=== PATIENT | female | born 1950 | race Caucasian/White ===

== ENCOUNTER 2016-09-01 05:05 | Inpatient (IN) | payer OTHER ==
[2016-08-09 15:35] VITALS: BMI 35.0
--- NOTE | 2016-08-09 16:09 | PAT Medication Instructions ---
Service Date Aug 09, 2016. Current Home Medication List Acetaminophen Tab (Tylenol), 650 MG PO Q4 PRN for Headache or Pain Iyjqrzs-Rdvvzvijlseba-Sbjbgvju (Excedrin Migraine), 2 TABS PO BID PRN for Headache or Pain Calcium Carbonate-Vitamin D (Calcium + D), 2 TAB PO QPM Citalopram Hydrobromide (Celexa), 10 MG PO QPM Diclofenac Sodium (Topical) (Voltaren 1% Top Gel), 1 APPLN TOP PRN PRN for TENNIS ELBOW Esomeprazole Magnesium (Nexium), 40 MG PO QAM Ibuprofen (Advil), Unknown Dose PO for Pain Methylcellulose (Laxative) (Citrucel Fiber Laxative), 1 TBS PO DAILY PRN for Constipation Multivitamin (Multivitamin), 1 TAB PO QPM Medication Instructions For Your Scheduled Surgery - Hold the following medications 7 days prior to surgery per surgeon instructions: Fwaxpaz-Tkbzzftiwfval-Uzmbwrbd (Excedrin Migraine), 2 TABS PO BID PRN for Headache or Pain (takes rarely for headaches) Ibuprofen (Advil), Unknown Dose PO for Pain - Hold the following medications 24 hours prior to surgery: Diclofenac Sodium (Topical) (Voltaren 1% Top Gel), 1 APPLN TOP PRN PRN for TENNIS ELBOW - Hold the following medications the morning of surgery: Methylcellulose (Laxative) (Citrucel Fiber Laxative), 1 TBS PO DAILY PRN for Constipation - Take the following medications the morning of surgery with a sip of water: Esomeprazole Magnesium (Nexium), 40 MG PO QAM Acetaminophen Tab (Tylenol), 650 MG PO Q4 PRN for Headache or Pain (if needed ) - Take the following medications as scheduled the night before surgery: Multivitamin (Multivitamin), 1 TAB PO QPM Methylcellulose (Laxative) (Citrucel Fiber Laxative), 1 TBS PO DAILY PRN for Constipation Citalopram Hydrobromide (Celexa), 10 MG PO QPM Calcium Carbonate-Vitamin D (Calcium + D), 2 TAB PO QPM Acetaminophen Tab (Tylenol), 650 MG PO Q4 PRN for Headache or Pain If you have any questions please call us at [phone] or [phone] ( Milly) or [phone]
[2016-08-09 16:40] LABS: BASO % 0.5 %; BASO ABS # 0.04 K/uL (0-0.2); COMPLETE YES; EOS % 1.6 %; HEMATOCRIT 39.2 % (37-47); IG% 0.7 %; LYMPH % 25.6 %; LYMPH ABS # 1.93 K/uL (1.2-3.4); MEAN CELL VOLUME 92.9 fL (80-100); MEAN CORPUSCULAR HEMOGLOBIN 30.6 pg (25-34); MEAN CORPUSCULAR HGB CONC 32.9 g/dl (32-36); MEAN PLATELET VOLUME 11.9 fL (7.4-10.4); MONO % 4.5 %; NEUT % 67.1 %; PLATELET COUNT 212 K/uL (130-400); RED BLOOD COUNT 4.22 M/uL (4.2-5.4); WHITE BLOOD COUNT 7.55 K/uL (4.8-10.8)
--- NOTE | 2016-08-09 16:40 | DIAGNOSTIC IMAGING REPORT ---
CHEST PREADMISSION(PA/LAT) CLINICAL HISTORY: Preoperative chest COMPARISON STUDY: No previous studies for comparison. FINDINGS: The heart is at the upper limits of normal in size. There is no failure. There is no focal pulmonary consolidation. There are no pleural effusions.[ IMPRESSION: No active disease in the chest. Electronically signed by: Timmy Forte M.D. 08/09/2016 4:39 PM Dictated Date/Time: 08/09/2016 4:39 PM
[2016-08-09 16:44] LABS: URINE APPEARANCE CLEAR (CLEAR); URINE BILIRUBIN NEG (NEG); URINE COLOR YELLOW; URINE EPITHELIAL CELL AUTO 0-5 /lpf (0-5); URINE NITRITE NEG (NEG); URINE PH 5.5 (4.5-7.5); URINE SPECIFIC GRAVITY 1.005 (1.000-1.030); UROBILINOGEN NEG (NEG)
[2016-08-09 16:48] LABS: INR 0.9 (0.9-1.1); MANUAL MICROSCOPIC REQUIRED? NO; PARTIAL THROMBOPLASTIN RATIO 1.1; REVIEW REQ? NO
[2016-08-09 16:54] LABS: BUN/CREATININE RATIO 13.6 (10-20); CALCIUM 8.9 mg/dl (8.5-10.1); CREATININE 0.75 mg/dl (0.60-1.20); POTASSIUM 4.2 mmol/L (3.5-5.1)
--- NOTE | 2016-08-10 18:32 | HISTORY & PHYSICAL EXAMINATION ---
DATE OF ADMISSION: 09/01/2016 CHIEF COMPLAINT: Bilateral knee pain, right side greater than left. HISTORY OF PRESENT ILLNESS: This 66-year-old female who presents to the clinic for preoperative history and physical. The patient complains of a several year history of bilateral knee pain. States the pain in her right knee is significantly greater than that of her left. The patient states that she has been a patient of Dr. Gramajo for approximately 10 years and has failed all types of conservative treatment to help control the progression of her arthritis. The patient states this time her right knee pain is affecting her daily living and feels that it is necessary for her to proceed with a total knee arthroplasty. At this time, the patient denies chest pain, shortness of breath, fevers, chills, sweats, nausea, vomiting or diarrhea. PAST SURGICAL HISTORY: Colonoscopy, hysterectomy, skin punch biopsy and wisdom tooth extraction. PAST MEDICAL HISTORY: Depression, gastroesophageal reflux, plantar fasciitis, obesity, borderline hyperlipidemia and difficulty waking from anesthesia. ALLERGIES: THE PATIENT HAS MEDICATION ALLERGY TO SULFA DRUGS. CURRENT MEDICATIONS taking Advil 200 mg oral tablets 2 tabs every 6 hours as needed for pain, calcium 600 plus D2 tabs daily, Celexa 10 mg oral tablet 1 tab daily, multivitamin unknown dosage 1 tab daily, Nexium 40 mg oral delayed release capsule 1 cap daily, Voltaren 1% topical gel 1 application topically 4 times daily as needed. SOCIAL HISTORY: The patient denies a history of smoking or illicit drug use. States she consumes approximately 1 alcoholic beverage per week. PHYSICAL EXAMINATION: SKIN: The patient's skin is normal in appearance. No skin lesions or discharge. EYES: Pupils are equal and reactive to light and accommodating. Extraocular movements are intact. EARS: Canals are clear of cerumen. Tympanic membranes are intact bilaterally with no bulging or effusion. NOSE: Turbinates pink and boggy in appearance. No appreciable rhinorrhea. THROAT: Posterior oropharynx clear without evidence of edema, erythema or exudate. CARDIOVASCULAR: The patient has a regular rate and rhythm with no murmurs or gallops appreciated. LUNGS: Auscultation of the lung clayton reveals clear breath sounds throughout with no wheezing, rales or rhonchi. ABDOMEN: Obese, nondistended, nontender with normoactive bowel sounds throughout. EXTREMITIES: Right knee, the patient is able to extend to 40 degrees and flex 112 degrees. She has mild crepitation to active and passive range of motion and obvious varus deformity of the right knee joint. She also experiences medial and lateral joint line tenderness on palpation at the knee placed in a flexed position. The patient's right patella was not mobile due to arthritic changes within the patellofemoral joint; however, she has no varus or valgus laxity. Negative drawer sign. Negative Kin's test. Her right calf is soft and supple, nontender to palpation. She is able to dorsi and plantarflex actively and passively against resistance without referred knee pain. She is neurovascularly intact in the right lower extremity. Peripheral pulses are palpable and capillary refill is brisk. She also has no notable edema, erythema, ecchymosis or palpable bony deformity of the right knee. The left knee, the patient also has a varus deformity, crepitation, medial and lateral joint line tenderness and inability to reach terminal flexion and extension. All other extremities normal appearance, appropriate range of motion and strength. NEUROLOGICAL: Cranial nerves II through XII are intact. No motor or sensory deficit. PSYCHOLOGICAL AND GENERAL: The patient is alert and oriented x3, proper grooming and hygiene. DIAGNOSIS: Right knee degenerative joint disease. PROCEDURE: Right total knee arthroplasty. Radiographic imaging standing series reveals end-stage degenerative joint disease of the right knee with marked varus deformity and significant flexion deformity as well as joint space narrowing. PLAN: The patient is scheduled to undergo the procedure with Dr. Wei Gramajo at the [facility] on 09/01/2016. Risks and complications of the surgery such as infection, bleeding, pain, scarring, nerve and blood vessel damage, weakness, wound problems, stiffness, incomplete relief of symptoms, heart attack, stroke, , hardware failure, loosening, wear, fracture, blood clots, embolism were explained to the patient, she understands and agrees. Written consent to perform the procedure was obtained. We will also obtain preoperative medical clearance from the patient's primary care provider, Dr. Heredia along with a CBC with differential, partial renal profile, PT/INR, PTT, blood type and screen, urinalysis, EKG and chest x-ray. The patient is scheduled for a preoperative anesthesia clearance at the hospital, staff will obtain the necessary testing at that time. The patient states she most likely will borrow a walker from her friend who recently had a hip replacement. However, if it is not available, she will contact the clinic and we will place an order for one. The patient was advised that she will be provided with prescription for pain medicine for postoperative pain control upon discharge from the hospital along with a prescription for Coumadin to take for 6 weeks for DVT prophylaxis. The patient will also use MICHELE stockings to prevent blood clots or embolism. She will be given prescriptions for physical therapy 2-3 times weekly for 6-8 weeks as well as biweekly PT/INR checks for the 6 weeks that she is taking the Coumadin. The patient was given paperwork for handicap placard that she may obtain prior to the procedure. The patient states she will most likely receive home therapy for 2 weeks postoperatively and then will continue her physical therapy in our PT department. The patient was advised of postoperative followup scheduled with Kaveh Robertson PA-C on 09/16/2016 at 1:00 p.m. The patient verbalized understanding of all the information provided at today's visit, thanks for the care she has received in our clinic and states that if she has additional questions or concerns that should arise prior to the procedure date she will contact the clinic accordingly. I attest to the content of the Intraoperative Record and any orders documented therein. Any exceptions are noted below. BECK
[~2016-09-01] VITALS: Ht 154.9 cm; Wt 85.0 kg
[2016-09-01] VITALS (9 sets, daily range): BP systolic 89–124; BP diastolic 53–85; PULSE 61–79; TEMP 36.5–36.9; O2SAT 94–98; Ht 154.9 cm; Wt 85.0 kg
[~2016-09-01 05:05] MED LIST: ACET325T96 PO; ASPI-390 PO; CALC600T9 PO; CITA10TA8 PO; DICL1GEL12 TOP; IBUP-1277 PO; METHPOW7 PO; MULT-506 PO; NXM/40 PO
[2016-09-01] MEDS ORDERED: LACTATED RINGER'S 1000ML 500 ML IV ONE (06:00)
[2016-09-01] MEDS ORDERED: LACTATED RINGER'S 1000ML 1,000 ML IV SCH (06:00)
[2016-09-01] MEDS ORDERED: CEFAZOLIN 2000 MG/60 ML D5W 60 ML IV SCH (06:00)
[2016-09-01] MEDS ORDERED: ROPIVACAINE 5MG/ML 30 ML 150 MG, BUPIVACAINE/EPINEPHR 0.5% MPF 30 ML, KETOROLAC TROMETH... INFIL SCH ×7 (06:00)
[2016-09-01] MEDS ORDERED: LACTATED RINGER'S 1000ML IV SCH (06:00)
--- NOTE | 2016-09-01 06:19 | History & Physical Bridge Note ---
H&P Re-Evaluation Bridge Note: I have examined the patient, reviewed the History & Physical and in the interval since the performance of the History & Physical I have noted the following changes of clinical significance: No changes noted
[2016-09-01] MEDS: TRANEXAMIC ACID INJ 1,000 MG in SODIUM CHLORIDE 0.9% 100ML 100 ML IV SCH ×2 (06:22→06:30)
[2016-09-01] MEDS ORDERED: BUPIVACAINE 0.5 % 5 MG/1 ML PF 10ML VIAL ONE (06:26)
[2016-09-01] MEDS ORDERED: BUPIVACAINE 0.25% 30 ML VIAL ONE (06:27)
[2016-09-01] MEDS ORDERED: MIDAZOLAM HCL 1 MG/ML 2ML VIAL ONE (06:30)
[2016-09-01] MEDS ORDERED: ORTHO JOINT ANESTHETIC ONE (06:33)
[2016-09-01] MEDS ORDERED: POVIDONE-IODINE OP SOLN 30 ML BTL ONE (06:34)
[2016-09-01] MEDS ORDERED: PROPOFOL IV EMULSION 10 MG/ML 20 ML VIAL IV ONE (07:10)
[2016-09-01] MEDS ORDERED: PHENYLEPHRINE 100MCG/ML 5ML SYR ONE (07:10)
[2016-09-01] MEDS ORDERED: ATROPINE SULFATE 0.1 MG/ML 5ML SYR IV PRN (07:30)
[2016-09-01] MEDS ORDERED: EpHEDrine SULFATE INJ 50 MG/ML AMP IV PRN (07:30)
[2016-09-01] MEDS ORDERED: ONDANSETRON INJ 2 MG/ML 2 ML VIAL IV PRN ×2 (07:30→08:30)
[2016-09-01] MEDS ORDERED: FENTANYL CITRATE INJ 50 MCG/1 ML 2 ML VIAL IV PRN (07:30)
--- NOTE | 2016-09-01 08:15 | [facility] Post Operative Brief Note ---
Immediate Operative Summary Operative Date Sep 01, 2016. Pre-Operative Diagnosis Right Knee Degenerative Joint Disease Post-Operative Diagnosis Right Knee Degenerative Joint Disease Procedure(s) Performed Right Total Knee Arthroplasty Surgeon Dr. Gramajo Exterior Work Helper Surgeon(s) ALFRED Lara Estimated Blood Loss 25 ml Findings sever medial disease Fluids (cc crystalloids) 1200cc Specimens A. Right Knee Bone and Tissue Drains none Anesthesia spinal Complication(s) None Disposition Recovery Room / PACU
[2016-09-01] MEDS ORDERED: ALUMINUM/MAGNESIUM/SIMETH (MAALOX MAX) 30 ML UDC PO PRN (08:30)
[2016-09-01] MEDS ORDERED: BISACODYL 10 MG SUPP PR PRN (08:30)
[2016-09-01] MEDS ORDERED: ACETAMINOPHEN 325 MG TAB PO PRN (08:30)
[2016-09-01] MEDS ORDERED: MoRPHine SULFATE 2 MG/ML CARP IV PRN (08:30)
[2016-09-01] MEDS ORDERED: METOCLOPRAMIDE HCL INJ 5 MG/ML 2 ML VIAL IV PRN (08:30)
[2016-09-01] MEDS ORDERED: MAGNESIUM HYDROXIDE SUSP 30 ML UDC PO PRN (08:30)
[2016-09-01] MEDS ORDERED: DiphenhydrAMINE HCL 50 MG/ML VIAL IV PRN (08:30)
[2016-09-01] MEDS ORDERED: ACETAMINOPHEN IV 100 ML IV PRN (08:30)
--- NOTE | 2016-09-01 08:35 | OPERATIVE REPORT ---
DATE OF OPERATION: 09/01/2016 PREOPERATIVE DIAGNOSIS: Osteoarthritis with varus deformity, right knee. POSTOPERATIVE DIAGNOSIS: Same. OPERATION PERFORMED: Cemented right total knee replacement. SURGEON: Dr. Gramajo. RN PACU: Kaveh Robertson PA-C. No resident or fellow available. SUMMARY OF IMPLANTS: Size 3 right posterior cruciate substituting femur, size 2.5 tibial tray, size 3 12.5 posterior cruciate stabilized poly insert. Oval domed 3 pegged patella size 35. Two bags of Palacos G cement. ESTIMATED BLOOD LOSS: 25 mL. CRYSTALLOID: 1200 mL. PERIOPERATIVE SITUATION: Medically cleared female with intractable knee pain has been followed for over a decade with progressive knee pain, has failed conservative management. At this point in time wants to proceed with surgical treatment. X-rays reveal end-stage medial compartment disease with complete collapse standing x-ray. PROCEDURE: The patient appropriately identified, site verified, consent verified, 2 grams of Ancef confirmed as being given. TXA confirmed as being given. The right lower extremity was prepped and draped in usual routine fashion. Tourniquet was inflated to 300 mmHg after exsanguination of limb with a rubber Esmarch bandage for a total of approximately 50 minutes. Midline exposure utilized. Parapatellar arthrotomy performed. Appropriate soft tissue release performed. Synovectomy completed. Osteophytes resected. Distal femur entered. Resected 12 mm. Femur was sized after the tibia cut. The proximal tibia was then delivered and it was resected 4 mm. Extension gap was then checked and it was excellent. The femur was then sized between a 3-1/2 and 2-1/2, it was measured 3 and cut 3 with no significant notching. The flexion gap was then checked. It was excellent. The box cut was then made. A size 3 trial fit well. The tibia was then subluxated anteriorly and appropriate broaching and reaming carried up for 2-1/2. The size 3 spacer was then placed and the knee was checked and it was in excellent alignment and extension and had full extension and flexion easily to 125 degrees. It was stable with mid range and deep flexion. This was then irrigated. The patella was then sized to a 35. Resection made leaving about 14.5 mm patella and the drill holes made and the trial tracked well. The wound was then irrigated. It was then sterilely injected with the Orthomix and then irrigated one final time with Betadine and Pulsavac and then the permanents cemented into position. After 12 minutes, the tourniquet deflated. After 14 minutes the knee flexed, trial spacer removed, the wound irrigated one final time. Minor cement removal occurred. Permanent spacer seated. The knee reduced and then closed with #1 Ethibond, #1 Vicryl, 2-0 Vicryl and stainless steel clips. Appropriate soft tissue dressing applied. The patient was then transferred to recovery room in satisfactory condition having tolerated the procedure well. Deep venous thrombosis prophylaxis per protocol. I attest to the content of the Intraoperative Record and any orders documented therein. Any exceptio ns are noted below.
--- NOTE | 2016-09-01 08:54 | DIAGNOSTIC IMAGING REPORT ---
RIGHT KNEE 1 OR 2 VIEWS ROUTINE CLINICAL HISTORY: AP/LATERAL IN PACU RIGHT KNEE Right knee replacement COMPARISON: None. DISCUSSION: Total right knee prosthetic. Good contact between prosthetic and underlying bone. Expected soft tissue postoperative change IMPRESSION: Anatomic alignment status post total right knee replacement Electronically signed by: Evans Browne M.D. 09/01/2016 8:53 AM Dictated Date/Time: 09/01/2016 8:53 AM
--- NOTE | 2016-09-01 09:14 | Anesthesiology Progress Note ---
Anesthesia Post Op Note Date & Time Sep 01, 2016 at 09:13 Vital Signs Pain Intensity: 0 Vital Signs Past 12 Hours Date Time Temp Pulse Resp B/P Pulse Ox O2 Delivery O2 Flow Rate FiO2 09/01/16 09:05 63 16 95/49 95 Nasal Cannula 2 09/01/16 08:55 63 18 92/47 95 Nasal Cannula 2 09/01/16 08:45 68 14 106/49 99 Nasal Cannula 2 09/01/16 08:35 64 18 88/44 98 Nasal Cannula 2 09/01/16 08:30 88/43 09/01/16 08:25 36.4 70 20 75/38 99 Mask 10 09/01/16 05:43 36.9 70 18 124/85 96 Room Air Notes Mental Status: alert / awake / arousable, participated in evaluation Pt Amnestic to Procedure: Yes Nausea / Vomiting: adequately controlled Pain: adequately controlled Airway Patency, RR, SpO2: stable & adequate BP & HR: stable & adequate Hydration State: stable & adequate Neuraxial Anesthesia: was administered, sensory block is resolving Anesthetic Complications: no major complications apparent
[2016-09-01] MEDS ORDERED: MoRPHine SULFATE 4 MG/ML 1 ML CARP\\VIAL IV PRN (09:45)
[2016-09-01] MEDS: D5W AND 1/2NSS + 20MEQ KCL 1,000 ML IV SCH ×2 (09:57→19:42)
[2016-09-01] MEDS: DOCUSATE SODIUM 100 MG CAP PO SCH ×2 (10:30→21:20)
[2016-09-01] MEDS: PANTOprazole SOD 40 MG TAB PO SCH (10:30)
[2016-09-01] MEDS: MULTIVITAMIN TAB PO SCH (10:31)
--- NOTE | 2016-09-01 11:04 | OPERATIVE REPORT ---
DATE OF OPERATION: 09/01/2016 PREOPERATIVE DIAGNOSIS: Right knee end-stage degenerative joint disease. POSTOPERATIVE DIAGNOSIS: Right knee same. PROCEDURE: Right knee total knee arthroplasty using DePuy implants. SURGEON: Dr. Gramajo. PARADICHLOROBENZENE MACHINE OPERATOR: Kaveh Robertson PA-C. HISTORY OF PRESENT ILLNESS: This 66-year-old white female presented to the office with complaints of right knee pain. She had tried conservative care measures without success. She elected to proceed with surgical intervention in hopes of alleviating her pain. Preoperative x-rays were obtained. OPERATION: The patient was administered spinal anesthetic and regional block and then taken to the operating room where she was given sedation. She was prepped and draped in the usual sterile fashion. Please see Dr. Gramajo's operative report for specifics of the procedure. I was present for the entire case from initial patient positioning through final wound closure. Assistance was provided in tissue retraction, hemostasis, trial implant placement, final implant placement, and final wound closure. The patient was taken to the recovery room in satisfactory condition. I attest to the content of the Intraoperative Record and any orders documented therein. Any exceptio ns are noted below.
[2016-09-01] MEDS ORDERED: WARF2TAB PO (11:17)
[2016-09-01] MEDS ORDERED: OXYC-57 PO (11:17)
[2016-09-01] MEDS: FERROUS GLUCONATE 324 MG TAB PO SCH ×2 (12:25→18:33)
[2016-09-01] MEDS: KETOROLAC TROMETHAMINE 15 MG/ML VIAL IV. SCH ×3 (12:25→23:46)
--- NOTE | 2016-09-01 13:58 | PROGRESS NOTE ---
DATE: 09/01/2016 DATE: 09/01/2016. SUBJECTIVE: Postop check status post right total knee replacement. At this point in time the patient is doing well, has no major issues. Block is wearing off. Vital signs are stable, she is afebrile. X-rays postop look excellent. ASSESSMENT: Continued care pathway status post total knee replacement. Mobilize KRISTEN.
[2016-09-01] MEDS ORDERED: TRANEXAMIC ACID INJ 1,000 MG in SODIUM CHLORIDE 0.9% 100ML 100 ML IV SCH (14:30)
[2016-09-01] MEDS: CEFAZOLIN IV 2,000 MG in DEXTROSE 5% 50ML 50 ML IV SCH ×2 (15:02→22:47)
[2016-09-01] MEDS ORDERED: WARFARIN SOD 5 MG TAB PO SCH (16:00)
[2016-09-01] MEDS: OXYCODONE HCL IR 5 MG TAB (IMMEDIATE RELEASE) PO PRN ×2 (19:42→23:46)
[2016-09-01] MEDS ORDERED: NURSING VERBAL MED ORDER ONE (20:45)
[2016-09-01] MEDS ORDERED: CITALOPRAM 20 MG TAB PO SCH (21:00)
[2016-09-02 03:59] VITALS: BP 98/65; PULSE 81; TEMP 36.5; O2SAT 95
[2016-09-02] MEDS: OXYCODONE HCL IR 5 MG TAB (IMMEDIATE RELEASE) PO PRN ×3 (04:11→13:39)
[2016-09-02 05:31] LABS: MEAN CELL VOLUME 92.2 fL (80-100); MEAN CORPUSCULAR HEMOGLOBIN 30.2 pg (25-34); MEAN CORPUSCULAR HGB CONC 32.7 g/dl (32-36); MEAN PLATELET VOLUME 11.1 fL (7.4-10.4); PLATELET COUNT 198 K/uL (130-400); RED BLOOD COUNT 3.58 M/uL (4.2-5.4); WHITE BLOOD COUNT 10.85 K/uL (4.8-10.8)
[2016-09-02 05:44] LABS: INR 1.1 (0.9-1.1); PROTHROMBIN TIME (PATIENT) 11.4 SECONDS (9.0-12.0)
[2016-09-02] MEDS: KETOROLAC TROMETHAMINE 15 MG/ML VIAL IV. SCH (05:56)
[2016-09-02 06:21] LABS: BUN/CREATININE RATIO 15.5 (10-20); CALCIUM 8.3 mg/dl (8.5-10.1); CREATININE 0.76 mg/dl (0.60-1.20); POTASSIUM 4.1 mmol/L (3.5-5.1)
[2016-09-02 07:00] VITALS: BP 104/66; PULSE 70; TEMP 36.5; O2SAT 97
--- NOTE | 2016-09-02 07:06 | PROGRESS NOTE ---
DATE: 09/02/2016 Postop day #1 status post right total knee replacement. At this point in time, the patient is doing well. She has no major issues. Her pain is well-managed. She denies any chest pain, shortness of breath, nausea, vomiting, headache, fever or chills. Vital signs are stable. She is afebrile. Neurovascular check; femoral sciatic nerve is good. She can do a straight leg raise. Wound dressing is clean, dry and intact. Abdomen is soft and nontender. Calves are nontender. Laboratory work this morning reveals hematocrit is 33. INR is 1.1. Chemistry is good. ASSESSMENT: Doing well. Plan is for PT/OT today and discharge later today. Coumadin per nomogram. Discharge on 4 mg of Coumadin daily. Check INR on Tuesday. She is doing at home PT for 2 weeks. She can have blood work done there as well.
[2016-09-02] MEDS: DEXAMETHASONE INJ 10 MG in SYRINGE 0 ML IV ONE ×2 (07:52→07:54)
--- NOTE | 2016-09-02 07:52 | DISCHARGE SUMMARY ---
CHIEF COMPLAINT: Right knee pain. HISTORY OF PRESENT ILLNESS: The patient underwent elective right total knee replacement for end-stage osteoarthritis of her right knee. Her hospital course has been uneventful. PAST SURGICAL HISTORY: Remarkable for colonoscopy, hysterectomy, skin punch biopsies, wisdom tooth extraction. PAST MEDICAL HISTORY: Remarkable for depression, reflux disease, plantar fasciitis, obesity, borderline hyperlipidemia. ALLERGIES: SULFA DRUGS. PREADMISSION MEDICATIONS: Include Advil, calcium, Celexa, multivitamins, Nexium, Voltaren topically. She will discontinue all anti-inflammatories, continue other meds, add p.r.n. pain medication, see prescription. Coumadin to keep INR 1.8-2.2. SOCIAL HISTORY: Reveals that she denies smoking or drug use. Social drinking only. PHYSICAL EXAMINATION: Reveals neurovascular check to be normal. Calves Abdomen soft. Chest clear. Blood work is excellent. ASSESSMENT: Doing well status post right total knee replacement. Will discharge to home after PT, OT today, latest tomorrow. Discharge on 4 mg of Coumadin daily. Check INR on Tuesday.
[2016-09-02] MEDS: DOCUSATE SODIUM 100 MG CAP PO SCH (08:38)
[2016-09-02] MEDS: FERROUS GLUCONATE 324 MG TAB PO SCH ×2 (08:38→12:26)
[2016-09-02] MEDS: MULTIVITAMIN TAB PO SCH (08:39)
[2016-09-02] MEDS: PANTOprazole SOD 40 MG TAB PO SCH (08:39)
[2016-09-02] MEDS ORDERED: DEXAMETHASONE 4 MG TAB PO ONE (08:45)
--- NOTE | 2016-09-02 09:05 | Discharge Instructions ---
Discharge Instructions Date of Service Sep 01, 2016. Admission Reason for Admission: Right Knee Degenerative Joint Disease Discharge Discharge Diagnosis / Problem: Right knee s/p total knee replacement Discharge Goals Goal(s): Decrease discomfort, Improve function, Increase independence Activity Recommendations Activity Limitations: as noted below Lifting Limitations: gradually increase as tolerated Exercise/Sports Limitations: until after follow-up appointment Shower/Bathe: keep incision dry Driving or Machine Use: No driving until cleared by Dr. Gramajo Weightbearing Status: Right weightbearing (as tolerated) . Instructions / Follow-Up Instructions / Follow-Up New Medicine: * You will likely be taking one or more of these medications: 1. Percocet - Take, as directed, when you need it, every four to six hours to control your pain. 2. Iron Sulfate - Take 1 time each day for the month after surgery to help you replace the blood lost during surgery. 3. Coumadin - Thins your blood to lessen the chance of forming a blood clot. The dose of this is different for each person and is based on your blood tests that are done twice a week. * The most common side effects of pain medicine and iron are nausea and constipation. If nausea or constipation is too much of a problem or if you have any questions about your new medicines or doses, call [facility] at . We will try to help you manage these issues. VERY IMPORTANT TO READ AND REVIEW" Blood Clots and Blood Thinning Medicine: * You are given Coumadin during the immediate post-operative period to lessen the risk of blood clots forming in your legs and/or lungs. Coumadin is usually given for six weeks after surgery. * The prescription is for 2 mg tablets. At discharge, you should understand your dose and take it all at the same time every day, preferably after dinner. * You need to get your blood checked 1 - 2 times per week for six weeks or as directed. * If your dose needs to change, we will call you. Do not take your medication on the day of the blood test until we call you. Pain: * The immediate post-operative period after knee replacement surgery is often quite painful. * You are given a prescription for pain medicine. You should take it, as directed, when you need it, especially before physical therapy and before going to bed. Pain that interferes with sleep is very common and can last several months. * You will likely need pain medicine for the first four to six weeks. It will not stop all of the pain. The pain will lessen and as you feel better, you may change to milder pain medicine such as Tylenol. * The most common side effects of pain medicine are nausea and constipation, so don't take more than you need. Physical Therapy: * You will have physical therapy two or three times each week for four to six weeks after your surgery in order to regain your knee range of motion and to retrain your knee to work properly. * It is just as important to make sure you are getting your knee perfectly straight as it is to regain your knee bend. * Taking a pain pill an hour before therapy can help you have a more productive and comfortable therapy session if needed. Home Exercise: * You were shown a series of exercises (heel props, heel slides, etc.) in the hospital. Do these exercises three to four times each day including the exercises you were shown in physical therapy. Walking: * Get up and walk several times each day. For the first four weeks, try not to stand or walk for more than one hour at a time. If you do stand or walk for more than one hour, you will not hurt anything, but your knee and leg will likely swell. * As you feel comfortable, you may change from the walker or crutches to a cane and then to independent walking. SELF CARE INSTRUCTIONS AFTER TOTAL KNEE REPLACEMENT A. You may need to continue a physical therapy program after discharge from the hospital. There are several options available to you. Your doctor will assist you in selecting the best one for you. 1. An out-patient facility 2 to 3 times a week for therapy or home therapy. 2. Continue working on all exercises taught to you in the hospital. Your goals should be to increase bending of your knee to 90 degrees and beyond and to fully straighten your knee. B. You may progress at your own pace from walking with a walker or crutches to a cane; then to no assistive devices. C. Make walking a part of your daily routine. Be up as much as comfortable with rest periods throughout the day. Rest with leg elevation is very important. Use the ice wrap frequently for the first 3-4 weeks. D. There are no restrictions on activities. You may ride in a car, shop, participate in solar project manager and all social activities. E. Wear the long elastic stockings (MICHELE hose) 20 hours a day for six weeks after surgery. They can be removed several times a day for laundering and for a shower. F. Do not place a pillow behind your knee when resting. A pillow at your ankle is okay. VERY IMPORTANT TO READ AND REVIEW A. Take Coumadin, Aspirin or Lovenox (blood thinning medications) as directed by your doctor. If on Coumadin, have a pro-time (blood test) drawn according to your doctor's instructions. This will tell the doctor how well the Coumadin is thinning your blood. 1. YOU WILL BE GIVEN AN ORDER AT DISCHARGE FOR PT/INR (BLOOD WORK). PLEASE HAVE THIS DONE INSTRUCTED. PLEASE CALL OUR OFFICE AFTER YOUR BLOODWORK IS COMPLETE SO WE CAN TRACK YOUR RESULTS. IF YOU ARE GOING TO OUTPATIENT PHYSICAL THERAPY, YOU WILL NEED TO GO TO OUTPATIENT TESTING TO HAVE IT DRAWN. B. There are a few signs you need to watch for after you are home. Call [facility] if you notice any of the followin. Increased severe knee pain. Some pain is expected especially when you exercise. 2. Increased swelling in your leg or knee; pain or swelling of the calf muscle in either lower leg. 3. Any fluid drainage from the incision. 4. Shortness of breath or chest pain. C. Please call [facility] at if you have any concerns or questions about your operation or recovery. The doctor or his nurse will return your call promptly. D. You must take antibiotics before dental work, bladder, bowel or other surgery. Call the office to obtain a prescription at least 2 days prior to your appointment. * CALL IF INCREASED PAIN, REDNESS, DRAINAGE OR FEVER GREATER THAT 101. * Sutures should be removed 12-14 days after surgery unless you are on chronic steriods, then it will be 14-18 days after surgery. Call your doctor if: * Temperature above 101 degrees F. * Pain not relieved by pain medicine ordered. * Increased drainage or redness from incision. * Notify your doctor with any questions or concerns. Current Hospital Diet Patient's current hospital diet: AHA Diet (Heart Healthy) Discharge Diet Recommended Diet: AHA Diet (Heart Healthy) Procedures Procedures Performed: Right Total Knee Arthroplasty Pending Studies Studies pending at discharge: no Medical Emergencies . Who to Call and When: Medical Emergencies: If at any time you feel your situation is an emergency, please call 911 immediately. . Non-Emergent Contact Non-Emergency issues call your: Primary Care Provider, Surgeon Call Non-Emergent contact if: temperature is above 100.5, wound has increased drainage, wound has increased redness, wound has increased pain, you have any medication questions . "Provider Documentation" section prepared by Kaveh Robertson PA-C. VTE Core Measure Inpt VTE Proph given/why not?: Warfarin (Coumadin), T.E.D. Stockings, SCD's
--- NOTE | 2016-09-02 09:09 | Orthopedic Progress Note ---
Orthopedic Progress Note Date of Service Sep 02, 2016. Subjective Post OP Day: 1 Reports: feeling well, pain controlled w PO medications, Denies: SOB, calf pain , chest pain, complaints, light headedness, nausea / vomiting Additional Notes: eating breakfast, desires to go home today. Objective calves soft nontender, N/V intact, capillary refill less than 2 sec., dressing C /D/I, incision C/D/I, A&O x3, toes mobile, CMS intact scant drainage, wound looks very good. Able to do a straight leg raise. Date Time Temp Pulse Resp B/P Pulse Ox O2 Delivery O2 Flow Rate FiO2 09/02/16 07:38 Room Air 09/02/16 07:00 36.5 70 18 104/66 97 Room Air 09/02/16 03:59 36.5 81 16 98/65 95 Room Air 09/01/16 23:53 Room Air 09/01/16 22:53 36.7 76 16 96/53 94 Room Air 09/01/16 19:20 36.6 68 16 112/71 95 Room Air 09/01/16 16:45 Room Air 09/01/16 15:34 36.7 68 16 103/66 95 Room Air 09/01/16 12:23 68 18 99/65 09/01/16 11:13 79 18 104/67 09/01/16 10:23 75 18 105/69 09/01/16 09:55 36.5 61 18 92/57 98 Nasal Cannula 2.0 09/01/16 09:25 97 Nasal Cannula 2.0 09/01/16 09:25 36.7 65 18 89/56 97 Nasal Cannula 2.0 09/01/16 09:25 Nasal Cannula 2.0 09/01/16 09:15 36.1 62 18 91/48 95 Nasal Cannula 2 Laboratory Results 24 Hours: Test 09/02/16 05:16 Hematocrit 33.0 % Hemoglobin 10.8 g/dL Prothromb Time International Ratio 1.1 Prothrombin Time 11.4 SECONDS Assessment & Plan Assessment: Right knee post op day 1 total knee arthroplasty Plan: PT/OT today. She may be discharged after 2nd PT session coumadin per nomogram dressing changed today by me changed decadron to oral from IV due to loss of IV site. D/C to home today. Discharge Planning Discharge Planning: home with home health Pain Management: Percocet DVT Prophylaxis: TEDs, SCDs, Coumadin
[2016-09-02 15:35] VITALS: BP 104/66; PULSE 70; TEMP 36.5; O2SAT 97
[2016-09-02] MEDS ORDERED: WARFARIN SOD 5 MG TAB PO ONE (16:00)
== END 2016-09-02 16:05 | disposition home health service (06) | DRG 470 ==
LOC: ENRESERVTM → ENRESERVDT → C.ACU 05:05 → C.3E 06:15
PROVIDERS: ADMIT Physical Medicine & Rehabilitation Sports Medicine; ATTEND Physical Medicine & Rehabilitation Sports Medicine
PROC: 0SRC0J9 Replacement of Right Knee Joint with Synthetic Substitute, Cemented, Open Approach (ICD-10-PCS; principal; 2016-09-02)
DX: M17.11 Unilateral primary osteoarthritis, right knee (principal); K21.9 Gastro-esophageal reflux disease without esophagitis; E66.9 Obesity, unspecified; E78.5 Hyperlipidemia, unspecified; E78.00 Pure hypercholesterolemia, unspecified; F41.9 Anxiety disorder, unspecified; G43.909 Migraine, unspecified, not intractable, without status migrainosus; F32.9 Major depressive disorder, single episode, unspecified; M21.161 Varus deformity, not elsewhere classified, right knee; M72.2 Plantar fascial fibromatosis; K58.9 Irritable bowel syndrome, unspecified; Z79.82 Long term (current) use of aspirin; Z68.35 Body mass index [BMI] 35.0-35.9, adult; Z79.899 Other long term (current) drug therapy; Z79.1 Long term (current) use of non-steroidal anti-inflammatories (NSAID)

== ENCOUNTER → 2016-10-18 | Outpatient (CLI) | payer OTHER ==
[~2016-10-18] MED LIST changes: -DICL1GEL12 TOP; -IBUP-1277 PO; +OXYC-57 PO; +WARF2TAB PO
== END | disposition home or self-care (01) ==
LOC: C.RDSM 13:50
PROVIDERS: ATTEND Physical Medicine & Rehabilitation Sports Medicine
DX: M25.561 Pain in right knee (principal)

== ENCOUNTER → 2017-02-15 | Outpatient (CLI) | payer OTHER ==
--- NOTE | 2017-02-16 13:48 | MAMMOGRAPHY REPORT ---
BILATERAL DIGITAL SCREENING MAMMOGRAM TOMOSYNTHESIS WITH CAD: 02/15/2017 CLINICAL HISTORY: Routine screening. Patient has no complaints. TECHNIQUE: Breast tomosynthesis in addition to standard 2D mammography was performed. Current study was also evaluated with a Computer Aided Detection (CAD) system. COMPARISON: Comparison is made to exams dated: 02/06/2015 mammogram, 02/05/2014 mammogram, 02/01/2013 m ammogram, 01/28/2012 mammogram, 01/26/2011 mammogram, and 01/22/2011 mammogram - [facility] enter. BREAST COMPOSITION: There are scattered areas of fibroglandular density in both breasts. FINDINGS: No new suspicious mass, architectural distortion or cluster of microcalcifications is seen . IMPRESSION: ACR BI-RADS CATEGORY 1: NEGATIVE There is no mammographic evidence of malignancy. A 1 year screening mammogram is recommended. The pa tient will receive written notification of the results. Approximately 10% of breast cancers are not detected with mammography. A negative mammographic report should not delay biopsy if a clinically suggestive mass is present. Amina Lynn M.D. ay/:02/15/2017 16:41:38 Security Intern: Navya VALENCIA(Kris)(Leslye)([place]), [facility] letter sent: Normal 1/2 BI-RADS Code: ACR BI-RADS Category 1: Negative
== END | disposition home or self-care (01) ==
LOC: C.MAMM 14:59
PROVIDERS: ATTEND Obstetrics & Gynecology
DX: Z12.31 Encounter for screening mammogram for malignant neoplasm of breast (principal)

== ENCOUNTER → 2017-02-28 | Outpatient (CLI) | payer OTHER | END | disposition home or self-care (01) | LOC: C.RDSM 11:36 | PROVIDERS: ATTEND Physical Medicine & Rehabilitation Sports Medicine | DX: M17.0 Bilateral primary osteoarthritis of knee (principal) ==

== ENCOUNTER → 2017-04-05 | Outpatient (CLI) | payer OTHER ==
[~2017-04-05] MED LIST changes: -OXYC-57 PO; -WARF2TAB PO
== END | disposition home or self-care (01) ==
LOC: C.PAPS 09:30
PROVIDERS: ATTEND Obstetrics & Gynecology
DX: Z12.4 Encounter for screening for malignant neoplasm of cervix (principal)

== ENCOUNTER → 2017-09-01 | Outpatient (CLI) | payer OTHER ==
[~2017-09-01] MED LIST changes: +ACET-1693 PO; -ACET325T96 PO
== END | disposition home or self-care (01) ==
LOC: C.RDSM 14:29
PROVIDERS: ATTEND Physical Medicine & Rehabilitation Sports Medicine
DX: Z96.651 Presence of right artificial knee joint (principal)

== ENCOUNTER 2020-03-14 10:35 | Observation (INO) ==
[2020-03-10 13:12] LABS: Basophils # (auto) 0.02 K/uL (0-0.2); Basophils % (auto) 0.3 %; Eosinophils # (auto) 0.11 K/uL (0-0.5); Eosinophils % (auto) 1.6 %; Hematocrit (blood only) 41.4 % (37-47); Hemoglobin 13.5 g/dL (12.0-16.0); Immature Granulocytes # (auto) 0.03 K/uL (0.00-0.02); Immature Granulocytes % (auto) 0.4 %; Lymphocytes # (auto) 1.75 K/uL (1.2-3.4); Lymphocytes % (auto) 25.7 %; Mean Corpuscular Hemoglobin 30.3 pg (25-34); Mean Corpuscular Hgb Conc 32.6 g/dL (32-36); Mean Corpuscular Volume 92.8 fL (80-100); Mean Platelet Volume 11.6 fL (7.4-10.4); Monocytes # (auto) 0.27 K/uL (0.11-0.59); Neutrophils # (auto) 4.62 K/uL (1.4-6.5); Platelet Count 252 K/uL (130-400); RDW Coefficient of Variation 13.8 % (11.5-14.5); RDW Standard Deviation 46.7 fL (36.4-46.3); Red Blood Count 4.46 M/uL (4.2-5.4)
[2020-03-10 13:16] LABS: Prothrombin Time 10.1 Seconds (9.0-12.0)
[2020-03-10 13:33] LABS: Albumin Level 3.3 gm/dl (3.4-5.0); BUN Creatinine Ratio 15.6 (10-20); C Reactive Protein 0.6 mg/dl (0-0.29); Calcium 9.4 mg/dl (8.5-10.1); Creatinine Clr Calc Pharmacy 61.3 ml/min; Est GFR (African American) 82.8; Est GFR (Non-African American) 71.4; Potassium 3.9 mmol/L (3.5-5.1)
[2020-03-10 13:36] LABS: Bilirubin,Total 0.7 mg/dl (0.2-1); Globulin 3.5 gm/dl (2.5-4.0); Total Protein 6.8 gm/dl (6.4-8.2)
--- NOTE | 2020-03-11 09:10 | Anesthesiology Consultation ---
Date of Service March 11, 2020 Assessment & Plan (1) Encounter for pre-operative examination: Chart Review Chart Review: Acceptable Risk for Surgery (pending preop Covid testing results ) and Patient NOT seen in Pre Admission Testing Per nursing assessment 03/04/20, patient denies recent travel. No known Covid positive contacts. Pt admits to mild runny nose/congestion- chronic and consistent with ongoing seasonal allergies. Covid test 03/10/20= results pending. History Surgery Operation Date: 03/14/20 12:30 Proposed Procedures p Left Total Knee Arthroplasty - Kiko Graves MD Height/Weight Height: 5 ft 1 in Weight: 82.1 kg Allergies Allergy/AdvReac Type Severity Reaction Status Date / Time Sulfa (Sulfonamide Allergy Unknown UNKNOWN- Verified 03/04/20 13:13 Antibiotics) ?RASH Medications Home Medications Medication Instructions Recorded Confirmed Last Taken wufovwj-nnnrxhbyoayub-vctittgs 250 2 tab PO DAILY PRN tab 12/12/18 03/04/20 Unknown mg-250 mg-65 mg tablet calcium carbonate-vitamin D3 600 1 cap PO QAM cap 12/12/18 03/04/20 Unknown mg calcium-200 unit capsule celecoxib 100 mg capsule 100 mg PO DAILY PRN cap 12/12/18 03/04/20 Unknown esomeprazole magnesium 40 mg 40 mg PO QAM cap 12/12/18 03/04/20 Unknown capsule,delayed release methylcellulose (laxative) 2 gm PO DAILY PRN 12/12/18 03/04/20 Unknown multivitamin 1 tab PO HS 12/12/18 03/04/20 Unknown levothyroxine 50 mcg PO QAM 08/01/19 03/04/20 Unknown citalopram [Celexa] 10 mg PO QPM 03/04/20 03/04/20 Unknown fluticasone propionate 1 spray INTRANASAL DAILY PRN 03/04/20 03/04/20 Unknown Past Medical History Medical History Anxiety Degenerative disc disease Depression GERD (gastroesophageal reflux disease) controlled Hypothyroidism IBS (irritable bowel syndrome) Obesity Past Family History Family History Sister Celiac disease Daughter Celiac disease Mother Cancer Father Lung disease Other No family history of adverse response to anesthesia Past Surgical History Surgical History H/O tooth extraction History of colonoscopy History of esophagogastroduodenoscopy (EGD) Hx of local excision of skin lesion S/P ANT (total abdominal hysterectomy) Status post right knee replacement Right TKA: 09/01/16: SAB x1 attempt at L3-L4 + PNB at [facility] Social History Smoking Status: Never smoker Do You Dip or Chew Tobacco: No Hx Alcohol Use: Yes alcohol intake frequency: holidays/special occasions only Hx Substance Use: No Testing Laboratory Results 03/10/20 11:32 03/10/20 11:32 PT 10.1 Seconds (9.0-12.0) 03/10/20 11:32 INR 1.0 (0.9-1.1) 03/10/20 11:32 Blood Type A Negative 03/10/20 11:32 Antibody Screen NEGATIVE 03/10/20 11:32 Electrocardiogram Date: 08/14/19 SB at 59bpm. Chest X-Ray Date: 08/14/19 Findings: + NAD
[2020-03-12 19:27] LABS: SARS CoV2 RNA (COVID-19) NOT DETECTED (NOT DETECTED)
[~2020-03-14 10:35] MED LIST changes: -ACET-1693 PO; +ACETAMINOPHEN 500 MG TAB PO SCH; -ASPI-390 PO; +BUPIVACAINE 0.5 % 5 MG/1 ML PF 10ML VIAL ONE; +BUPIVACAINE LIPOSOME/PF 266 MG, BUPIVACAINE/EPINEPHRINE 50 ML, SODIUM CHLORIDE 0.9% 30 ... INFIL SCH; +BUPIVACAINE/EPINEPHRINE 0.25% 1:200,000 30 ML VIAL ONE; -CALC600T9 PO; +CEFAZOLIN 2000MG 2,000 MG/15 ML SYR IV SCH; -CITA10TA8 PO; +FAMOTIDINE 20 MG TAB PO SCH; +GABAPENTIN 300 MG CAP PO SCH; +LR 500ML BOLUS, THEN 15ML/HR IV SCH; +LR 60ML/HR IV SCH; -METHPOW7 PO; +METOCLOPRAMIDE HCL 10 MG TABLET PO SCH; +MIDAZOLAM HCL 1 MG/ML 2ML VIAL ONE; -MULT-506 PO; -NXM/40 PO; +TRANEXAMIC ACID 1,000 MG **IV Intra-op IV SCH; +fentaNYL citrate 100 MCG/2 ML VIAL ONE
--- NOTE | 2020-03-14 10:45 | History & Physical Bridge Note ---
Date of Service March 14, 2020 History & Physical Bridge Note I have examined the patient, reviewed the History & Physical and in the interval since the performance of the History & Physical I have noted the following changes of clinical significance: no changes noted
[2020-03-14] MEDS ORDERED: ONDANSETRON INJ 2 MG/ML 2 ML VIAL IV PRN ×2 (12:16→15:42)
[2020-03-14] MEDS ORDERED: ePHEDrine sulfate 50 MG/ML AMP IV PRN (12:16)
[2020-03-14] MEDS ORDERED: fentaNYL citrate 100 MCG/2 ML VIAL IV PRN (12:16)
[2020-03-14] MEDS ORDERED: PROMETHAZINE HCL 12.5 MG in SODIUM CHLORIDE 0.9% 50 ML IV PRN (12:16)
[2020-03-14] MEDS ORDERED: HYDROmorphone INJ 2 MG/ML SYR/VIAL IV PRN (12:16)
[2020-03-14] MEDS ORDERED: ATROPINE SULFATE 0.1 MG/ML 10ML SYR IV PRN (12:16)
[2020-03-14] MEDS ORDERED: BACITRACIN INJ 50,000 UNIT VIAL ONE (12:56)
[2020-03-14] MEDS ORDERED: BUPIVACAINE LIPOSOME 1.3% 266 MG/20 ML VIAL ONE (12:56)
[2020-03-14] MEDS ORDERED: BUPIVACAINE/EPINEPHRINE 0.25% 1:200,000 30 ML VIAL ONE (12:56)
[2020-03-14] MEDS ORDERED: SODIUM CHLORIDE 0.9% PF 50 ML VIAL ONE (12:56)
[2020-03-14] MEDS ORDERED: PHENYLEPHRINE HCL 10 MG/ML VIAL ONE (13:45)
[2020-03-14] MEDS ORDERED: PROPOFOL IV EMULSION 10 MG/ML 20 ML VIAL IV ONE (13:45)
--- NOTE | 2020-03-14 14:42 | Post Operative Brief Note ---
PG Immediate Post Op with CF Date of Surgery March 14, 2020 Pre & Post Diagnosis Operation Date: 03/14/20 12:30 Pre-Op Diagnosis: Left Knee Degenerative Joint Disease; Knee Pain Post-Op Diagnosis: Left Knee Degenerative Joint Disease; Knee Pain I identified the patient and participated in the time-out.: Yes Procedure Operation Date: 03/14/20 12:30 Actual Procedures p Left Total Knee Arthroplasty(Left) - Kiko Graves MD Surgeon Kiko Graves MD Human Resources Project Coordinator Saul, [facility] Estimated Blood Loss 50 Findings Consistent with Post-Op Diagnosis Fluids 600 cc Specimens Specimen Description: Permanent Specimen: A) Left Knee Bone and Tissue Drains Hughes Catheter Anesthesia Type Spinal MAC Complications none Disposition Accompanied Patient To Recovery: No Disposition: Recovery Room
--- NOTE | 2020-03-14 14:53 | Operative Report ---
Post Operative Report Pre & Post Diagnosis Operation Date: 03/14/20 12:30 Pre-Op Diagnosis: Left Knee Degenerative Joint Disease; Knee Pain Post-Op Diagnosis: Left Knee Degenerative Joint Disease; Knee Pain I identified the patient and participated in the time-out.: Yes Procedure Operation Date: 03/14/20 12:30 Actual Procedures p Left Total Knee Arthroplasty(Left) - Kiko Graves MD Surgeon Kiko Graves MD Joint Machine Operator Saul, PAC Estimated Blood Loss 50 Findings Consistent with Post-Op Diagnosis Operative findings revealed advanced left knee medial compartment DJD with grade 4 [id number] disease of the medial compartment. She had fairly mild disease elsewhere. She did have a varus deformity to her knee with a moderate sized knee joint effusion. She did have osteophytes medially. Fluids 600 cc. Specimens Left knee sent for pathology. Drains None. Anesthesia Type Spinal MAC Complications none Disposition Accompanied Patient To Recovery: No Disposition: Recovery Room Indications Patient is a 69-year-old female is had a fairly long history of bilateral knee pain discomfort. She did undergo a right knee replacement about 3 years ago when struggled with this. She been put up with a left knee for the past several years. Conservative care became less effective and it was really limiting her activities. She elected proceed with a left total knee arthroplasty. Description of Procedure Operative implants consisted of: 1. Biomet Vanguard size 65 left posterior stabilized femoral component. 2. Biomet size 67 tibial tray. 3. 10 mm posterior stabilized polyethylene insert. 4. A 28 x 8 all poly-patella. Operative procedure the patient was taken to the operating identified and placed on the operating table supine position protectors were properly padded. IV antibiotics arrived by anesthesia team. A spinal anesthetic and abductor canal block had been provided in the holding area. Hughes catheter was placed in sterile fashion. Left factor was then placed in the left lower extremities and prepped and draped in usual sterile fashion. The left leg was elevated exsanguinated with use of an Esmarch and turns placed at 3 mmHg. An anterior approach to the left knee was then performed to longitudinal incision centered over the patella. Sharp dissection was got through subcutaneous tissue down to the extensor mechanism. A medial parapatellar arthrotomy incision was made. Some subperiosteal dissection was carried out medially. The fat pad was resected from each patella tendon. Lateral patellofemoral ligament was released. Patella was subluxated laterally and the knee was flexed. The osteophytes were taken off distal femur. The ACL and PCL were then released in the distal femur the tibia subluxate anteriorly. The external tibial alignment jig was then placed in the interface the tibia and adjusted 14 mm medially. Proximal tibial cut was made remove about 2 mm of bone from most efficient aspect medial till plateau. The tibia was then sized to a size 67. Attention drawn the femur. The distal femur then with a sharp drop with intramedullary canal was suction. A left 5 degree valgus cutting guide was then placed. The distal femoral cutting block was pinned in place. The distal femur was then made to take an additional 3 mm of bone off distal femur. The femur was then sized to a size 65. We did downsize this almost an entire size due to the narrow medial and lateral dimensions of her femur. The AP cutting block was pinned parallel to the epicondylar axis which was 5 degrees of external rotation. The anterior cut, anterior chamfer, posterior cut, posterior chamfer cuts were made. Box cutting guide was placed in just slight lateral and the box cut was made. The knee was flexed. The remnants of the medial and lateral menisci were excised. The osteophytes were taken off the posterior aspect the femur. Trial femoral component was placed. The tibial tray was pinned in maximum external rotation and the drill and stem punch were used to create defect in the proximal tibia for the tibial tray. Knee was then trialed the 10 mm insert fit most appropriately. Attention drawn to the patella. The patella was cleaned of all soft tissues. Patella thickness measured 23 mm in thickness was cut down 13. Was sized to a size 28 patella. The lug holes were drilled for the 28 patella. The lateral osteophyte is moved. Patella button was placed. Knee was taken through range of motion patella tracked nicely with no thumbs test. Attention drawn to placing the permanent components. All trial components were removed. A bone plug was placed in the distal femur limit blood loss put a double batch Palacos G cement was mixed. A Vicampoguard size 65 left posterior stabilized femoral component, size 67 tibial tray, 10 mm posterior box polyethylene insert, 28 x 8 all poly-patella then cemented in place. Knee was brought out in full extension total cement hardened. Final cement check was then performed. Pericapsular tissues were injected with total 100 cc of combination of 20 cc of Exparel, 30 cc normal saline, 50 cc of quarter percent Marcaine with epinephrine. Patient did receive 1 g tranexamic acid. The tourniquet was then let down for final tourniquet time 51 minutes. Hemostasis assured use electrocautery. The extensor mechanism then closed with combination 1 PDS suture #1 Vicryl suture in [id number] fashion. Extensor mechanism checked found to be intact with subcutaneous tissue then closed with 2 Dexon suture in a buried interrupted fashion skin was closed skin scar. Leg was then cleaned dried a sterile dressing composed Xeroform, 4 x 4's, sterile cast padding, Akbar bandage were applied. Patient then transferred to the recovery room in stable condition. Patient tolerated procedure well and there were no complications. Germain Hughes, my physician assisted living assistant, was present for the entire procedure. His assistance was essential and required for appropriate patient positioning, prepping and draping, surgical exposure, performing the technical details of the operation, placement the implants, closure of the wound, and placement of the sterile bandage. I attest to the content of the Intraoperative Record and any orders documented therein. Any exceptions are noted below.
--- NOTE | 2020-03-14 15:11 | Anesthesiology Progress Note ---
Date of Service March 14, 2020 Anesthesia Post Procedure Vital Signs Vital Signs: Temp Pulse Pulse Resp BP BP Pulse Ox 03/14/20 15:04 76 20 104/43 L 99 03/14/20 14:55 78 15 98/49 L 99 03/14/20 14:47 36.3 C L 79 16 96/52 L 99 03/14/20 11:43 62 18 123/58 L 97 03/14/20 10:56 36.9 C 65 16 129/61 94 Transfer of Care Handoff Completed per policy Notes Mental Status: alert / awake / arousable and participated in evaluation Patient Amnestic to Procedure: Yes Nausea / Vomiting: adequately controlled Pain: adequately controlled Airway Patency, RR, SpO2: stable & adequate BP & HR: stable & adequate Hydration State: stable & adequate Neuraxial Anesthesia: was administered and sensory block is resolving Anesthetic Complications: no major complications apparent and Pt Satisfied with anesthetic care
--- NOTE | 2020-03-14 15:14 | XRay Report ---
TWO VIEWS LEFT KNEE CLINICAL HISTORY: Postoperative examination. FINDINGS: AP and crosstable lateral portable views of the left knee are obtained. A left knee arthrop lasty is in near anatomic alignment. There has been undersurface remodeling of the patella. No acute fracture is seen. There are expected postoperative changes around the knee including skin clips, soft tissue edema, and subcutaneous gas. IMPRESSION: Expected postoperative changes status post left knee arthroplasty. No acute fracture is s een. ACT 112: Negative or not required by law. Electronically signed by: Davidson Ambrose M.D. 03/14/2020 3:12 PM
[2020-03-14] MEDS ORDERED: NALOXONE HCL 0.4 MG/1 ML VIAL/CARP IV PRN (15:42)
[2020-03-14] MEDS ORDERED: HYDROmorphone INJ 0.5 MG/0.5 ML SYR IV PRN (15:42)
[2020-03-14] MEDS ORDERED: ALUMINUM/MAGNESIUM SUSP 30 ML UDC PO PRN (15:42)
[2020-03-14] MEDS ORDERED: METOCLOPRAMIDE HCL INJ 5 MG/ML 2 ML VIAL IV PRN (15:42)
[2020-03-14] MEDS ORDERED: bisacodyL 10 MG SUPP PR PRN (15:42)
[2020-03-14] MEDS ORDERED: MAGNESIUM HYDROXIDE SUSP 30 ML UDC PO PRN (15:42)
[2020-03-14] MEDS ORDERED: FLUTICASONE PROPIONATE NA SPR 16 GM BTL NAE PRN (15:42)
[2020-03-14] MEDS ORDERED: METHYLCELLULOSE POWDER 454 GM JAR PO PRN (15:56)
[2020-03-14] MEDS: SODIUM CHLORIDE 0.9% 1000ML 1,000 ML IV SCH (17:39)
[2020-03-14] MEDS: Scopolamine CHECK PATCH PLACEMENT SCH ×2 (17:40→23:31)
[2020-03-14] MEDS: FERROUS GLUCONATE 324 MG TAB PO SCH (17:53)
[2020-03-14] MEDS: EXCEDRIN: ORDER AWAITING ACTION SCH ×2 (17:53→23:31)
[2020-03-14] MEDS: ASCORBIC ACID 500 MG TAB PO SCH (17:53)
[2020-03-14] MEDS: KETOROLAC TROMETHAMINE 15 MG/ML VIAL IV SCH ×2 (17:53→21:21)
[2020-03-14] MEDS: OXYCODONE HCL IR 5 MG TAB (IMMEDIATE RELEASE) PO PRN (19:20)
[2020-03-14] MEDS ORDERED: TRANEXAMIC ACID / 0.7% NACL 1,000 MG/100 ML BAG IV SCH (20:45)
[2020-03-14] MEDS ORDERED: CITALOPRAM 20 MG TAB PO SCH (21:00)
[2020-03-14] MEDS ORDERED: SENNA 8.6 MG TAB PO SCH (21:00)
[2020-03-14] MEDS ORDERED: MULTIVITAMIN TAB PO SCH (21:00)
[2020-03-14] MEDS: ASPIRIN 81 MG ECTAB PO SCH (21:19)
[2020-03-14] MEDS: DOCUSATE SODIUM 100 MG CAP PO SCH (21:19)
[2020-03-14] MEDS: ACETAMINOPHEN 500 MG TAB PO SCH (21:20)
[2020-03-14] MEDS: TAPENTADOL HCL ER 50 MG TABCR PO SCH (21:28)
[2020-03-14] MEDS: CEFAZOLIN 2000MG 2,000 MG/15 ML SYR IV SCH (22:11)
[2020-03-15] MEDS: SODIUM CHLORIDE 0.9% 1000ML 1,000 ML IV SCH (02:05)
[2020-03-15] MEDS: CEFAZOLIN 2000MG 2,000 MG/15 ML SYR IV SCH (05:11)
[2020-03-15] MEDS: KETOROLAC TROMETHAMINE 15 MG/ML VIAL IV SCH ×2 (05:11→11:05)
[2020-03-15] MEDS: ACETAMINOPHEN 500 MG TAB PO SCH (06:17)
[2020-03-15 06:19] LABS: Hematocrit (blood only) 31.6 % (37-47); Hemoglobin 10.1 g/dL (12.0-16.0); Mean Corpuscular Volume 93.8 fL (80-100); Platelet Count 179 K/uL (130-400); RDW Standard Deviation 48.2 fL (36.4-46.3); Red Blood Count 3.37 M/uL (4.2-5.4); White Blood Count 7.48 K/uL (4.8-10.8)
[2020-03-15] MEDS ORDERED: LEVOTHYROXINE SODIUM 50 MCG TABLET PO SCH (06:30)
[2020-03-15 06:47] LABS: BUN Creatinine Ratio 15.4 (10-20); Calcium 8.4 mg/dl (8.5-10.1); Creatinine Clr Calc Pharmacy 37.3 ml/min; Est GFR (African American) 90.7; Est GFR (Non-African American) 78.2
[2020-03-15] MEDS ORDERED: PANTOprazole 40 MG TAB PO SCH (09:00)
[2020-03-15] MEDS ORDERED: CALCIUM 600MG + VIT D 400 IU TAB PO SCH (09:00)
[2020-03-15] MEDS ORDERED: MULTIVITAMIN TAB PO SCH (09:00)
[2020-03-15] MEDS: FERROUS GLUCONATE 324 MG TAB PO SCH (09:01)
[2020-03-15] MEDS: ASCORBIC ACID 500 MG TAB PO SCH (09:02)
[2020-03-15] MEDS: DOCUSATE SODIUM 100 MG CAP PO SCH (09:03)
[2020-03-15] MEDS: ASPIRIN 81 MG ECTAB PO SCH (09:03)
[2020-03-15] MEDS: TAPENTADOL HCL ER 50 MG TABCR PO SCH (09:05)
--- NOTE | 2020-03-15 09:11 | Progress Notes ---
DATE: 03/15/2020 SUBJECTIVE: A 69-year-old female postop day 1 from a left knee replacement. She had a remarkably good night. Denies any chest pain or shortness of breath. Pain has been controlled. Not feeling dizzy or lightheaded. OBJECTIVE: VITAL SIGNS: Temperature 36.9. Vital signs stable. GENERAL: Shows a pleasant, middle-aged female. She is lying in bed, looks quite comfortable this morning. EXTREMITIES: Examination of the left leg reveals the dressing to be clean, dry and intact. Leg is well aligned. She can dorsiflex and plantarflex her foot appropriately. She is neurologically intact. She can do a straight leg raise. LABORATORY DATA: Hemoglobin 10.1. Hematocrit 31.6. Electrolytes are stable. ASSESSMENT: A 69-year-old female postop day 1 from left knee replacement, doing quite well. Pain is controlled. She is neurologically intact. PLAN: 1. DVT prophylaxis including thigh-high TEDs, SCDs, and aspirin twice a day. 2. PT/OT. Weight bear as tolerated. Left total knee protocol. 3. Pain control, doing well with current pain regimen. 4. Disposition: She is hoping to be discharged home with some home health later today. We will see how therapy goes and her pain is controlled later in the day.
[2020-03-15] MEDS: OXYCODONE HCL IR 5 MG TAB (IMMEDIATE RELEASE) PO PRN (11:04)
[2020-03-16] MEDS ORDERED: CeleBREX 200 MG CAP PO SCH (21:00)
--- NOTE | 2020-03-18 14:23 | Discharge Summary ---
Date of Service March 18, 2020 Admission HPI Per Admitting Provider Documented in the H & P Admission Exam (Per Admitting) Constitutional Documented in the H & P Discharge Data Consultations 03/14/20 15:42 Consult Case Management - Discharge Planning Routine Procedures Performed Operation Date: 03/14/20 12:30 Actual Procedures p Left Total Knee Arthroplasty(Left) - Kiko Graves MD Hospital Course (1) Status post total left knee replacement: This patient is a 69 year old female admitted on 03/14/20 and underwent total knee arthroplasty. She tolerated the procedure well and there were no complications. Transferred to the PACU post op and later to the orthopedic floor for further care. She was given ancef for antibiotic prophylaxis. She was also given MICHELE stockings, SCDs, and aspirin for DVT prophylaxis. Hemoglobin, hematocrit, and vital signs were monitored during her hospital stay and remained stable. Did not require any blood transfusions. There were no complications during her hospital stay. By post op day #1 the patient was tolerating a regular diet, pain was reasonably controlled with oral pain medicine, and she was participating in physical therapy. On post op day #1 the patient was discharged home and set up with home health care. She was given printed discharge instructions including prescriptions for extra strength tylenol, aspirin, and oxycodone. Continue physical therapy, weight bearing as tolerated. Continue MICHELE stockings. Follow up approximately 2 weeks post op or sooner if there are problems or concerns. Coding Level of Care Code None Diagnoses Status post total left knee replacement Z96.652
== END 2020-03-15 11:45 | disposition home health service (06) ==
LOC: 3E 10:35 → ASU 10:35